=== PATIENT | female | born 1970 | race Caucasian/White ===

== ENCOUNTER → 2017-04-07 | Outpatient (REF) | payer OTHER ==
[2017-04-07 14:23] LABS: CONTROL LINE MONO INT CTR LINE PRESENT
== END ==
LOC: M LAB REF 13:49
PROVIDERS: ATTEND Nurse Practitioner Family
DX: J06.9 Acute upper respiratory infection, unspecified (principal)

== ENCOUNTER → 2017-04-20 | Outpatient (REF) | payer OTHER ==
[2017-04-23 00:06] LABS: Lyme Disease IgG/IgM Antibodie <0.91 ISR (0.00-0.90); Lyme Disease IgM Ab Quantitati <0.80 index (0.00-0.79)
== END ==
LOC: M LAB REF 15:23
PROVIDERS: ATTEND Nurse Practitioner Adult Health
DX: R53.83 Other fatigue (principal)

== ENCOUNTER → 2018-07-23 | Outpatient (CLI) | payer BC, OTHER | LOC: M WUC 15:09 | DX: R10.32 Left lower quadrant pain (principal) | CPT/HCPCS: 71046 ==

== ENCOUNTER 2019-06-19 20:34 | Emergency (ER) | payer BC, OTHER ==
[~2019-06-19] VITALS: Ht 180.3 cm; Wt 67.7 kg
[2019-06-19] MEDS ORDERED: TOVI8TAB PO (20:49)
[2019-06-19] MEDS ORDERED: HM V5000 PO (20:49)
[2019-06-19] MEDS ORDERED: LEVOTAB19 PO (20:49)
[2019-06-19] MEDS ORDERED: LORA-436 PO (20:49)
[2019-06-19] MEDS ORDERED: ULTR5TAB PO (20:52)
[2019-06-19] MEDS ORDERED: VALA500T5 PO (20:52)
[2019-06-19] MEDS ORDERED: OMEP40CA97 PO (20:52)
[2019-06-19] MEDS ORDERED: [UNRECOGNIZED DRUG - OTHER] PO (20:52)
[2019-06-19] MEDS ORDERED: LOPE2CAP PO (20:52)
--- NOTE | 2019-06-19 21:53 | REPVR ---
PROCEDURE INFORMATION: Exam: CT Head Without Contrast Exam date and time: 06/19/2019 9:42 PM Clinical history: 48 years old, female; Pain; Headache not specified TECHNIQUE: Imaging protocol: Computed tomography of the head without contrast. Radiation optimization: All CT scans at this facility use at least one of these dose optimization techniques: automated exposure control; mA and/or kV adjustment per patient size (includes targeted exams where dose is matched to clinical indication); or iterative reconstruction. COMPARISON: No relevant prior studies available. FINDINGS: Brain: Normal. No hemorrhage. Unremarkable white matter. No mass effect. Ventricles: Normal. No ventriculomegaly. Bones/joints: Unremarkable. No acute fracture. Sinuses: Visualized sinuses are unremarkable. No fluid levels. Mastoid air cells: Visualized mastoid air cells are well aerated. Soft tissues: Unremarkable. IMPRESSION: No acute intracranial abnormality. Electronically signed by: Waqar Sierra On 06/19/2019 21:53:30 PM
[2019-06-19] MEDS ORDERED: INDOMETHACIN 25 MG CAP PO ONE (22:30)
[2019-06-19] MEDS ORDERED: NS 1,000 ML IV ONE (22:30)
[2019-06-19] MEDS ORDERED: hydrALAZINE INJ 20 MG/ML VIAL IV ONE (22:30)
[2019-06-19 22:44] VITALS: BP 195/110
[2019-06-19 23:07] LABS: BASO % 0.3 % (0.0-1.0); EOS % 0.5 % (0.0-3.0); HEMATOCRIT 42.4 % (36.0-47.0); HEMOGLOBIN 14.4 g/dl (12.0-15.5); LYMPH # 2.4 10^3/uL (1.5-5.0); LYMPH % 31.7 % (24.0-44.0); MEAN CORPUSCULAR HEMOGLOBIN 35.5 pg (27.0-33.0); MEAN CORPUSCULAR VOLUME 104.4 fl (80.0-96.0); MONO # 0.6 10^3/uL (0.0-0.8); MONO % 8.5 % (0.0-5.0); NEUTROPHILS # 4.4 10^3/uL (1.5-8.5); NEUTROPHILS % 58.7 % (36.0-66.0); PLATELET COUNT, AUTOMATED 242 10^3/uL (150-450); RED BLOOD COUNT 4.06 10^6/uL (4.00-5.40); WHITE BLOOD COUNT 7.5 10^3/uL (4.0-10.0)
[2019-06-19 23:15] LABS: BLOOD UREA NITROGEN 14 MG/DL (7-18); C REACTIVE PROTEIN QUANTITATIV 0.45 MG/DL (0.00-0.30); CALCIUM LEVEL 8.8 MG/DL (8.5-10.1); CARBON DIOXIDE LEVEL 28 MEQ/L (21-32); CHLORIDE LEVEL 109 MEQ/L (98-107); CREATININE FOR GFR 0.81 MG/DL (0.55-1.30); GLOMERULAR FILTRATION RATE > 60.0 (>58); GLUCOSE, FASTING 87 MG/DL (70-100); POTASSIUM SERUM 3.6 MEQ/L (3.5-5.1); SODIUM LEVEL 142 MEQ/L (136-145)
[2019-06-19] MEDS ORDERED: carBAMazepine 200 MG TAB PO ONE (23:15)
[2019-06-19 23:30] VITALS: BP 177/107
[2019-06-19 23:30] LABS: ERYTHROCYTE SEDIMENTATION RATE 8 mm/hr (0-20)
[2019-06-19] MEDS ORDERED: CARB20TA PO (23:43)
== END 2019-06-20 00:05 | disposition home or self-care (01) ==
LOC: M ED 20:34
DX: G50.0 Trigeminal neuralgia (principal); H54.8 Legal blindness, as defined in USA; Z79.899 Other long term (current) drug therapy; Z79.3 Long term (current) use of hormonal contraceptives; Z88.1 Allergy status to other antibiotic agents

== ENCOUNTER 2019-06-25 11:29 | Emergency (ER) | payer BC, OTHER ==
[~2019-06-25] VITALS: Ht 180.3 cm; Wt 69.1 kg
[~2019-06-25 11:29] MED LIST: CARB20TA PO; HM V5000 PO; LEVOTAB19 PO; LOPE2CAP PO; LORA-436 PO; OMEP40CA97 PO; TOVI8TAB PO; ULTR5TAB PO; VALA500T5 PO; [UNRECOGNIZED DRUG - OTHER] PO
[2019-06-25 12:21] LABS: BASO % 0.3 % (0.0-1.0); EOS # 0.1 10^3/uL (0.0-0.5); EOS % 0.5 % (0.0-3.0); HEMATOCRIT 40.9 % (36.0-47.0); HEMOGLOBIN 13.8 g/dl (12.0-15.5); LYMPH # 1.6 10^3/uL (1.5-5.0); LYMPH % 17.4 % (24.0-44.0); MEAN CORPUSCULAR HEMOGLOBIN 34.7 pg (27.0-33.0); MEAN CORPUSCULAR HGB CONC 33.7 g/dl (32.0-36.5); MEAN CORPUSCULAR VOLUME 102.8 fl (80.0-96.0); MONO # 0.6 10^3/uL (0.0-0.8); MONO % 6.7 % (0.0-5.0); NEUTROPHILS % 74.9 % (36.0-66.0); PLATELET COUNT, AUTOMATED 248 10^3/uL (150-450); RED BLOOD COUNT 3.98 10^6/uL (4.00-5.40); WHITE BLOOD COUNT 9.4 10^3/uL (4.0-10.0)
[2019-06-25] MEDS ORDERED: KETOROLAC 30 MG/ML VIAL (J1885) IV ONE (12:30)
[2019-06-25] MEDS ORDERED: ONDANSETRON 4MG/2ML VIAL (J2405) IV ONE (12:30)
[2019-06-25] MEDS ORDERED: NS 1,000 ML IV ONE (12:30)
[2019-06-25 12:39] LABS: ALBUMIN 3.5 GM/DL (3.2-5.2); ALT/SGPT 29 U/L (12-78); BILIRUBIN,TOTAL 0.8 MG/DL (0.2-1.0); BLOOD UREA NITROGEN 13 MG/DL (7-18); CALCIUM LEVEL 8.2 MG/DL (8.5-10.1); CARBON DIOXIDE LEVEL 24 MEQ/L (21-32); CHLORIDE LEVEL 108 MEQ/L (98-107); CREATININE FOR GFR 0.68 MG/DL (0.55-1.30); GLOMERULAR FILTRATION RATE > 60.0 (>58); GLUCOSE, FASTING 79 MG/DL (70-100); LIPASE 188 U/L (73-393); SODIUM LEVEL 139 MEQ/L (136-145); TOTAL PROTEIN 6.7 GM/DL (6.4-8.2)
[2019-06-25] MEDS: GASTROGRAFIN SOLUTION 30ML PO SCH ×2 (12:57→13:28)
[2019-06-25] MEDS ORDERED: METOCLOPRAMIDE INJ 10MG/2ML VIAL (J2765) IV ONE (13:45)
[2019-06-25] MEDS ORDERED: ISOVUE-370 76% 100ML VIAL (Q9967) As Ordered ONE (14:09)
[2019-06-25] MEDS ORDERED: FLAG500T PO (14:44)
[2019-06-25] MEDS ORDERED: AUGM875T28 PO (14:44)
--- NOTE | 2019-06-25 14:45 | REP ---
Clinical: Diffuse abdominal pain with history of inflammatory bowel syndrome. Technique: Axial contrast enhanced images from the lung bases to the pubic symphysis using oral (per protocol) and 100 ml Isovue 370 intravenous contrast material with coronal and sagittal re-formations. Findings: Mucosal thickening and mild pericolonic stranding primarily involving the transverse and descending colon as well as few loops of small bowel in the left mid/upper abdomen along with small amount of ascites is most suggestive of colitis. No evidence for bowel obstruction or free air to suggest obvious perforation. Right lower quadrant demonstrates associated mildly prominent adenopathy at the ileocecal level. The appendix is not definitively identified. Liver, spleen, pancreas, gallbladder, and bilateral adrenal glands are normal. Kidneys demonstrate nephrocalcinosis and bilateral simple cysts. Pelvis demonstrates partially collapsed normal bladder and age-appropriate uterus/adnexa. Abdominal aorta without aneurysm or dissection. Musculoskeletal structures are intact. Lung bases are clear. Impression: 1. Findings most compatible with infectious/inflammatory enterocolitis. Sigmoid diverticulosis noted without definite diverticulitis. Mildly prominent lymph nodes in the right lower quadrant/pericecal region are also identified. The appendix is not definitively visualized. 2. Chronic nephrocalcinosis/medullary sponge kidney suggested. Electronically Signed by Giuliano Leos MD 06/25/2019 02:36 P
[2019-06-25] MEDS ORDERED: DICY10CA13 PO (14:46)
[2019-06-25] MEDS ORDERED: ZOFR4TAB16 PO (14:46)
[2019-06-25] MEDS ORDERED: REGL10TA6 PO (14:46)
[2019-06-25 14:57] VITALS: BP 159/94
[2019-06-25] MEDS ORDERED: metroNIDAZOLE (FLAGYL) 500 MG TAB PO ONE (15:00)
[2019-06-25] MEDS ORDERED: AUGMENTIN 875 MG TAB PO ONE (15:00)
== END 2019-06-25 15:15 | disposition home or self-care (01) ==
LOC: M ED 11:29
DX: K57.32 Diverticulitis of large intestine without perforation or abscess without bleeding (principal); I10 Essential (primary) hypertension; Q61.5 Medullary cystic kidney; K58.9 Irritable bowel syndrome, unspecified; Z88.1 Allergy status to other antibiotic agents; Z79.899 Other long term (current) drug therapy; Z79.3 Long term (current) use of hormonal contraceptives
CPT/HCPCS: 74177; 80053; 81001; 83690; 84702; 85025; 96361; 96374; 96375; 99284; J1885; J2405; J2765; Q9963; Q9967

== ENCOUNTER 2019-09-11 11:07 | Day surgery (SDC) | payer BC, OTHER ==
[~2019-09-11] VITALS: Ht 177.8 cm; Wt 64.4 kg
[~2019-09-11 11:07] MED LIST changes: +AUGM875T28 PO; +DICY10CA13 PO; +FLAG500T PO; +LISI-538 PO; +NS 1,000 ML IV ONE; +REGL10TA6 PO; +ZOFR4TAB16 PO
[2019-09-11] MEDS ORDERED: LIDOCAINE 2% INJ 100 MG/5 ML SDV (FOR ANES.) As Ordered ONE (12:03)
[2019-09-11] MEDS ORDERED: propofoL 200 MG/20 ML VIAL As Ordered ONE ×2 (12:03→12:31)
--- NOTE | 2019-09-11 12:22 | ROOR ---
Patient Name: Heena Kapadia Procedure Date: 09/11/2019 11:59 AM Date of : 1970 Age: 48 Room: [facility] Gender: Female Note Status: Finalized Procedure: Total Colonoscopy to Cecum + Biopsy Polypectomy Indications: High risk colon cancer surveillance: Personal history of colonic polyps, Last colonoscopy: 2012 Providers: Fer Vincent MD Referring MD: WILFREDO MARTINEZ JR, MD Requesting Provider: Medicines: Monitored Anesthesia Care Complications: No immediate complications. Procedure: Pre-Anesthesia Assessment: - The heart rate, respiratory rate, oxygen saturations, blood pressure, adequacy of pulmonary ventilation, and response to care were monitored throughout the procedure. The Colonoscope was introduced through the anus and advanced to the cecum, identified by appendiceal orifice and ileocecal valve. The colonoscopy was performed without difficulty. The patient tolerated the procedure well. The quality of the bowel preparation was excellent. Findings: The perianal and digital rectal examinations were normal. Non-bleeding internal hemorrhoids were found during retroflexion. The hemorrhoids were small and Grade I (internal hemorrhoids that do not prolapse). Multiple small and large-mouthed diverticula were found in the recto-sigmoid colon, sigmoid colon and descending colon. A small polyp was found at 35 cm proximal to the anus. The polyp was sessile. The polyp was removed with a jumbo cold forceps. Resection and retrieval were complete. The exam was otherwise without abnormality on direct and retroflexion views. Impression: - Non-bleeding internal hemorrhoids. - Diverticulosis in the recto-sigmoid colon, in the sigmoid colon and in the descending colon. - One small polyp at 35 cm proximal to the anus, removed with a jumbo cold forceps. Resected and retrieved. - The examination was otherwise normal on direct and retroflexion views. - The exam was otherwise normal to the cecum. Recommendation: - Patient has a contact number available for emergencies. The signs and symptoms of potential delayed complications were discussed with the patient. Return to normal activities tomorrow. Written discharge instructions were provided to the patient. - High fiber diet. - Discharge patient to home. - Continue present medications. - Await pathology results. - Telephone GI clinic for pathology results in 1 week. - Repeat colonoscopy in 5 years for surveillance. - Return to referring physician. - The findings and recommendations were discussed with the patient's family. Fer Vincent MD Fer Vincent MD 09/11/2019 12:22:22 PM Electronically signed by Fer Vincent MD Number of Addenda: 0 Note Initiated On: 09/11/2019 11:59 AM Estimated Blood Loss: Estimated blood loss: none.
[2019-09-11 12:40] VITALS: BP 116/69
== END 2019-09-11 12:52 | disposition home or self-care (01) ==
LOC: M OPP 11:07
PROVIDERS: ATTEND Internal Medicine Gastroenterology
DX: Z12.11 Encounter for screening for malignant neoplasm of colon (principal); Z86.010 Personal history of colon polyps; K64.0 First degree hemorrhoids; D12.6 Benign neoplasm of colon, unspecified; K57.30 Diverticulosis of large intestine without perforation or abscess without bleeding; Z79.899 Other long term (current) drug therapy; Z88.1 Allergy status to other antibiotic agents

== ENCOUNTER 2020-06-16 04:35 | Observation (INO) | payer BC, OTHER ==
[~2020-06-16] VITALS: Ht 180.3 cm; Wt 68.0 kg
[~2020-06-16 04:35] MED LIST changes: -NS 1,000 ML IV ONE
[2020-06-16] MEDS ORDERED: C1 ESTERASE INHIBITOR IV ONE (05:00)
[2020-06-16] MEDS ORDERED: NS 1,000 ML IV ONE ×2 (05:00→07:15)
[2020-06-16 05:03] LABS: BASO % 0.2 % (0.0-1.0); EOS # 0.1 10^3/uL (0.0-0.5); EOS % 1.1 % (0.0-3.0); HEMATOCRIT 37.7 % (36.0-47.0); HEMOGLOBIN 12.4 g/dl (12.0-15.5); LYMPH # 2.2 10^3/uL (1.5-5.0); LYMPH % 22.8 % (24.0-44.0); MEAN CORPUSCULAR HEMOGLOBIN 34.3 pg (27.0-33.0); MEAN CORPUSCULAR HGB CONC 32.9 g/dl (32.0-36.5); MEAN CORPUSCULAR VOLUME 104.4 fl (80.0-96.0); MONO # 0.8 10^3/uL (0.0-0.8); MONO % 8.1 % (0.0-5.0); NEUTROPHILS # 6.6 10^3/uL (1.5-8.5); NEUTROPHILS % 67.5 % (36.0-66.0); PLATELET COUNT, AUTOMATED 247 10^3/uL (150-450); RED BLOOD COUNT 3.61 10^6/uL (4.00-5.40); WHITE BLOOD COUNT 9.8 10^3/uL (4.0-10.0)
[2020-06-16 05:23] LABS: ERYTHROCYTE SEDIMENTATION RATE 6 mm/hr (0-20)
[2020-06-16 05:30] LABS: ALBUMIN 3.1 GM/DL (3.2-5.2); ALT/SGPT 31 U/L (12-78); BILIRUBIN,DIRECT 0.2 MG/DL (0.0-0.2); BILIRUBIN,TOTAL 1.1 MG/DL (0.2-1.0); BLOOD UREA NITROGEN 15 MG/DL (7-18); C REACTIVE PROTEIN QUANTITATIV 0.45 MG/DL (0.00-0.30); CALCIUM LEVEL 8.1 MG/DL (8.5-10.1); CARBON DIOXIDE LEVEL 26 MEQ/L (21-32); CHLORIDE LEVEL 109 MEQ/L (98-107); CREATININE FOR GFR 0.78 MG/DL (0.55-1.30); GLOMERULAR FILTRATION RATE > 60.0 (>58); GLUCOSE, FASTING 105 MG/DL (70-100); POTASSIUM SERUM 3.7 MEQ/L (3.5-5.1); SODIUM LEVEL 141 MEQ/L (136-145); TOTAL PROTEIN 6.3 GM/DL (6.4-8.2)
[2020-06-16] MEDS ORDERED: CETI-24 PO (08:51)
[2020-06-16] MEDS ORDERED: IBUP200C28 PO (08:51)
[2020-06-16] MEDS ORDERED: SETL1TAB PO (08:51)
[2020-06-16] MEDS ORDERED: LOPE-39 PO (08:51)
[2020-06-16] MEDS ORDERED: BIOT50005 SL (08:51)
--- NOTE | 2020-06-16 08:55 | REPVR ---
PROCEDURE INFORMATION: Exam: XR Chest, 1 View Exam date and time: 06/16/2020 8:35 AM Age: 49 years old Clinical indication: Other: Angioedema; Patient HX: Possible allergic reaction. TECHNIQUE: Imaging protocol: XR of the chest Views: Frontal portable sitting upright view of the chest. COMPARISON: CR CHEST 2 VIEW 08/27/2018 10:30 AM FINDINGS: Lungs: The lungs are clear bilaterally. The pulmonary vasculature is normal. Pleural space: No pleural effusion. No pneumothorax. Heart/Mediastinum: The heart is normal in size and contour. Mediastinum: Stable. Vasculature: Mild aortic arch atherosclerotic calcification without ectasia. Bones/joints: Stable. IMPRESSION: No acute cardiopulmonary abnormality identified. Electronically signed by: Robin Umaña On 06/16/2020 08:55:35 AM
[2020-06-16 09:45] VITALS: BP 134/67
[2020-06-16] MEDS: ENOXAPARIN 40MG/0.4ML SYRINGE (J1650 PER 10MG) SC SCH (10:48)
[2020-06-16] MEDS: NS 1,000 ML IV SCH ×2 (10:48→17:33)
[2020-06-16] MEDS: PANTOPRAZOLE 40MG VIAL (C9113 PER 1) IV SCH (10:49)
[2020-06-16 12:00] VITALS: BP 127/72
--- NOTE | 2020-06-16 13:20 | HPEPDOC ---
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 According to the patient she had woke up at 3 AM this morning feeling as though she was "choking" and increased right tongue swelling. She felt as though she will was dehydrated as she had drank wine the night before. She had symptoms of nausea with 4 episodes of nonbloody vomitus along with a headache and lightheadedness. She took 3 anti-inflammatory pills for the tongue swelling but this did not help. Vacations she had taken 94 include SRINATH inhibitor which she has been on for the past several years and melatonin, both the pill and chewable form. She felt as though the tongue swelling and "choking" feeling worsened over course of 15 minutes. She also noticed increased bilateral neck swelling which concerned her. She felt as so she had a panic attack during this time she had anterior chest pressure associated with her choking feeling. She called 911 and was later brought to the emergency room. In route the patient received decadron and Benadryl. In the emergency room the patient's still had significant right tongue swelling and felt as though her change of voice had not much improved from earlier. She was unable to move her tongue well and she was given a C1 esterase inhibitor. She was monitored for 3 hours but these tongue swelling persisted. Dr. Burnett with ENT saw patient in the ER and did fiberoptic scope. Dr. Thomas with pulm/ICU was consulted as well. Decision was made to admit to monitor closely in the ICU. At time of admission, ROS below.Patient was admitted for SRINATH inhibitor angioedema. REVIEW OF SYSTEMS: CONSTITUTIONAL: Denies lack of energy, unexplained weight gain or weight loss, fever, night sweats EYES: Denies eye drainage, eye pain, visual changes, dry/irritated eye EARS, NOSE, MOUTH, THROAT: Denies difficulty hearing, ringing in ears, mouth sores, loose teeth, sore throat, facial numbness or pain CARDIOVASCULAR: Denies irregular heartbeat, racing heart, swelling of feet or legs, pain in legs with walking RESPIRATORY: Denies night sweats, wheezing, sputum production, oxygen at home, coughing up blood, cough lasting > 1 month GASTROINTESTINAL: Denies abdominal pain, constipation, bloody stool, diarrhea, heartburn GENITOURINARY: Denies painful urination, bloody urine, frequent urination, urgency, leaking urine, impotence MUSCULOSKELETAL: Denies joint pain, muscle pain, leg swelling INTEGUMENTARY: Denies rash, itching, new skin lesion, change in existing skin lesion, hair loss or increase, breast changes. NEUROLOGICAL: Denies difficulty walking, numbness or tingling PSYCHIATRIC: Denies depression, anxiety, recurrent bad thoughts, mood swings, hallucinations PAST MEDICAL HISTORY: 1. History of herpes of the right eye, chronic 2. Hypertension 3. History of anxiety with panic attacks 4. Cataracts 5. GERD 6. Blindness of eye PAST SURGICAL HISTORY: 1. Cataract surgery 2. tonsillectomy FAMILY HISTORY: Father: prostate CA, DM. at 57 y/o Mother: alive, healthy SOCIAL HISTORY: Prior smoker less than 1 pack per day for 20 years, quit 16 years ago. Denies any pain or smokeless tobacco use. Drinks 34 glasses of wine a night. Denies illicit drug use. Lives locally with her family. Her primary care doctor is Dr. Fermin ALLERGIES: Please see below. HOME MEDICATIONS: Please see below. PHYSICAL EXAMINATION: CONSTITUTIONAL: No acute distress, resting comfortably, AAO x 3 EYES: PERRLA, EOM intact HENT, MOUTH: right tongue swelling, moist mucous membranes NECK: SUPPLE, no JVD, cervical lymphadenopathy bilaterally, nontender, no carotid bruit CV: Regular rate and rhythm, S1S2 normal, no murmurs/rubs/gallops RESPIRATORY: Clear to auscultation bilaterally, no rales/rhonchi/wheezes GI: BS positive in 4 quadrants, soft, nontender, nondistended, no rebound or guarding, no organomegaly : Deferred MUSCULOSKELETAL: Normal ROM. No cyanosis, clubbing, swelling, joint deformity, extremity edema INTEGUMENTARY: Intact, no rashes, no lesions, no erythema NEUROLOGIC: Cranial Nerves II-XII are intact, no focal deficits PSYCHIATRIC: Mood and affect are normal LABORATORY DATA: Please see below IMAGING: CXR: No acute cardiopulmonary abnormality identified. ASSESSMENT: 49-year-old female with past medical history of hypertension, panic attacks, anxiety, GERD who was admitted under observation status for SRINATH inhibitor angioedema. PLAN: ACEi angioedema -S/p decadron, benadryl and C1 esterase inhibitor. -Currently saturating well on RA with swelling of right tongue slightly more improved -Monitor closely with continuous pulse ox, humidified air, elevate HOB. -Labs pending -NPO, advance diet as tolerated -ICU for close monitoring, if worsens, consider FFP -Both pulmonary and ENT consulted to follow. HTN. -Stable. -Hold ACEi Hx of herpes of eye, chronic -C/w valtrex Hx of anxiety, panic attack. -Stable GERD -PPI DVT px -Enoxaparin DISPOSITION: Admitted under observation status to ICU for aforementioned issue. Plan is discharge home when medically improved. Vital Signs Vital Signs Date Time Temp Pulse Resp B/P (MAP) Pulse Ox O2 Delivery O2 Flow Rate FiO2 06/16/20 12:00 99.3 71 18 127/72 (90) 98 Room Air Laboratory Data Labs 24H Laboratory Tests 2 06/16/20 04:43: Immature Granulocyte % (Auto) 0.3, Neutrophils (%) (Auto) 67.5H, Lymphocytes (%) (Auto) 22.8L, Monocytes (%) (Auto) 8.1H, Eosinophils (%) (Auto) 1.1, Basophils (%) (Auto) 0.2, Neutrophils # (Auto) 6.6, Lymphocytes # (Auto) 2.2, Monocytes # (Auto) 0.8, Eosinophils # (Auto) 0.1, Basophils # (Auto) 0.0, Nucleated Red Blood Cells % (auto) 0.0, Erythrocyte Sedimentation Rate 6, Anion Gap 6L, Glomerular Filtration Rate > 60.0, Calcium Level 8.1L, Total Bilirubin 1.1H, Direct Bilirubin 0.2, Aspartate Amino Transf (AST/SGOT) 21, Alanine Aminotr ansferase (ALT/SGPT) 31, Alkaline Phosphatase 34L, C-Reactive Protein, Quantitative 0.45H, Total Protein 6.3L, Albumin 3.1L, Albumin/Globulin Ratio 1.0L CBC/BMP Laboratory Tests 06/16/20 04:43 Home Medications Scheduled Biotin (Biotin) 5,000 Mcg Tab.subl, 5,000 MCG SL DAILY TAKES AT NOON Cetirizine HCl (Cetirizine HCl) 10 Mg Tablet, 10 MG PO DAILY TAKES AT NOON Cyanocobalamin (Vitamin B-12) (Vitamin B12) 5,000 Mcg Tab.rapdis, 5,000 MCG PO DAILY TAKES AT NOON Fesoterodine Fumarate (Toviaz) 8 Mg Tab.er.24h, 8 MG PO BID Levonorgestrel-Ethin Estradiol (Setlakin 0.15 mg-0.03 mg Tab) 1 Each Tbdspk.3mo, 1 TAB PO DAILY Lisinopril (Lisinopril) 20 Mg Tablet, 20 MG PO DAILY TAKES AT NOON Loperamide HCl (Imodium A-D) 2 Mg Capsule, 4 MG PO DAILY TAKES AT NOON Omeprazole (Omeprazole) 40 Mg Capsule.dr, 40 MG PO DAILY Valacyclovir HCl (Valacyclovir) 500 Mg Tablet, 500 MG PO DAILY TAKES AT NOON [stresstabs] , 1 TAB PO DAILY Scheduled PRN Ibuprofen (Ibuprofen) 200 Mg Capsule, 600 MG PO QID PRN for PAIN Allergies Coded Allergies: Lisinopril (Verified Allergy, Severe, angioedema , 06/16/20) levofloxacin (Verified Allergy, Intermediate, hives, 09/06/19) A-FIB/CHADSVASC A-FIB History Current/History of A-Fib/PAF?: No Current PO Anticoag Therapy: No Age/Risk Factor Scoring CHADSVASC: CHADSVASC Response (Comments) Value Age Risk Factor Age < 65 years old 0 Gender Risk Factor Female 1 Hx of CHF No 0 Hx of HTN Yes 1 Hx of Stroke/TIA/or VTE No 0 Hx of Diabetes No 0 Hx of Vascular Disease No 0 Total 2 Treatment Treatment ordered: Other Other anticoagulant ordered: enoxaparin Lorena Alan MD Jun 16, 2020 13:20
[2020-06-16 16:00] VITALS: BP 123/80
[2020-06-16 20:00] VITALS: BP 126/71
[2020-06-16] MEDS ORDERED: IBUPROFEN 600MG TAB PO ONE (21:15)
[2020-06-17] VITALS: BP 138/98
[2020-06-17 04:00] VITALS: BP 143/86
[2020-06-17] MEDS: NS 1,000 ML IV SCH (04:30)
[2020-06-17 04:52] LABS: HEMATOCRIT 34.1 % (36.0-47.0); HEMOGLOBIN 11.1 g/dl (12.0-15.5); MEAN CORPUSCULAR HGB CONC 32.6 g/dl (32.0-36.5); MEAN CORPUSCULAR VOLUME 107.6 fl (80.0-96.0); PLATELET COUNT, AUTOMATED 176 10^3/uL (150-450); RED BLOOD COUNT 3.17 10^6/uL (4.00-5.40); WHITE BLOOD COUNT 5.2 10^3/uL (4.0-10.0)
[2020-06-17 05:16] LABS: BLOOD UREA NITROGEN 8 MG/DL (7-18); CALCIUM LEVEL 7.5 MG/DL (8.5-10.1); CARBON DIOXIDE LEVEL 24 MEQ/L (21-32); CHLORIDE LEVEL 112 MEQ/L (98-107); CREATININE FOR GFR 0.59 MG/DL (0.55-1.30); GLOMERULAR FILTRATION RATE > 60.0 (>58); GLUCOSE, FASTING 96 MG/DL (70-100); POTASSIUM SERUM 3.6 MEQ/L (3.5-5.1); SODIUM LEVEL 143 MEQ/L (136-145)
[2020-06-17] MEDS ORDERED: AMLO1TAB24 PO (07:47)
[2020-06-17 08:00] VITALS: BP 148/91
[2020-06-17 08:26] VITALS: BP 148/91
[2020-06-17] MEDS: ENOXAPARIN 40MG/0.4ML SYRINGE (J1650 PER 10MG) SC SCH (08:26)
[2020-06-17] MEDS: PANTOPRAZOLE 40MG VIAL (C9113 PER 1) IV SCH (08:26)
[2020-06-17] MEDS ORDERED: amLODIPine 5 MG TAB PO SCH (09:00)
--- NOTE | 2020-06-17 13:39 | DS.PDOC ---
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 According to the patient she had woke up at 3 AM this morning feeling as though she was "choking" and increased right tongue swelling. She felt as though she will was dehydrated as she had drank wine the night before. She had symptoms of nausea with 4 episodes of nonbloody vomitus along with a headache and lightheadedness. She took 3 anti-inflammatory pills for the tongue swelling but this did not help. Vacations she had taken 94 include SRINATH inhibitor which she has been on for the past several years and melatonin, both the pill and chewable form. She felt as though the tongue swelling and "choking" feeling worsened over course of 15 minutes. She also noticed increased bilateral neck swelling which concerned her. She felt as so she had a panic attack during this time she had anterior chest pressure associated with her choking feeling. She called 911 and was later brought to the emergency room. In route the patient received decadron and Benadryl. In the emergency room the patient's still had significant right tongue swelling and felt as though her change of voice had not much improved from earlier. She was unable to move her tongue well and she was given a C1 esterase inhibitor. She was monitored for 3 hours but these tongue swelling persisted. Dr. Burnett with ENT saw patient in the ER and did fiberoptic scope. Dr. Thomas with pulm/ICU was consulted as well. Decision was made to admit to monitor closely in the ICU. At time of admission, ROS below.Patient was admitted for SRINATH inhibitor angioedema. HOSPITAL COURSE: She was kept off of SRINATH inhibitor during hospital stay. She tolerated an advanced diet well. Over the evening her pulse oximetry was stable and she remained on room air. the next morning the patient had no swelling and no difficulty breathing, difficulty swallowing or other issues. She was started on a low-dose amlodipine in place of lisinopril which she tolerated well. The patient was discharged home with follow-up with both ear nose and throat and primary care provider. At discharge the patient had no complaints. He was advis ed to update all providers that she was now allergic to lisinopril and to no longer take the medication at home due to risk of airway compromise. REVIEW OF SYSTEMS: CONSTITUTIONAL: Denies lack of energy, unexplained weight gain or weight loss, fever, night sweats EYES: Denies eye drainage, eye pain, visual changes, dry/irritated eye EARS, NOSE, MOUTH, THROAT: Denies difficulty hearing, ringing in ears, mouth sores, loose teeth, sore throat, facial numbness or pain CARDIOVASCULAR: Denies irregular heartbeat, racing heart, swelling of feet or legs, pain in legs with walking RESPIRATORY: Denies night sweats, wheezing, sputum production, oxygen at home, coughing up blood, cough lasting > 1 month GASTROINTESTINAL: Denies abdominal pain, constipation, bloody stool, diarrhea, heartburn GENITOURINARY: Denies painful urination, bloody urine, frequent urination, urgency, leaking urine, impotence MUSCULOSKELETAL: Denies joint pain, muscle pain, leg swelling INTEGUMENTARY: Denies rash, itching, new skin lesion, change in existing skin lesion, hair loss or increase, breast changes. NEUROLOGICAL: Denies difficulty walking, numbness or tingling PSYCHIATRIC: Denies depression, anxiety, recurrent bad thoughts, mood swings, hallucinations PAST MEDICAL HISTORY: 1. History of herpes of the right eye, chronic 2. Hypertension 3. History of anxiety with panic attacks 4. Cataracts 5. GERD 6. Blindness of eye PAST SURGICAL HISTORY: 1. Cataract surgery 2. tonsillectomy FAMILY HISTORY: Father: prostate CA, DM. at 57 y/o Mother: alive, healthy SOCIAL HISTORY: Prior smoker less than 1 pack per day for 20 years, quit 16 years ago. Denies any pain or smokeless tobacco use. Drinks 34 glasses of wine a night. Denies illicit drug use. Lives locally with her family. Her primary care doctor is Dr. Fermin ALLERGIES: Please see below. HOME MEDICATIONS: Please see below. PHYSICAL EXAMINATION: VS: Please see below CONSTITUTIONAL: No acute distress, resting comfortably, AAO x 3 EYES: PERRLA, EOM intact HENT, MOUTH: right tongue swelling, moist mucous membranes NECK: SUPPLE, no JVD, cervical lymphadenopathy bilaterally, nontender, no carotid bruit CV: Regular rate and rhythm, S1S2 normal, no murmurs/rubs/gallops RESPIRATORY: Clear to auscultation bilaterally, no rales/rhonchi/wheezes GI: BS positive in 4 quadrants, soft, nontender, nondistended, no rebound or gu arding, no organomegaly : Deferred MUSCULOSKELETAL: Normal ROM. No cyanosis, clubbing, swelling, joint deformity, extremity edema INTEGUMENTARY: Intact, no rashes, no lesions, no erythema NEUROLOGIC: Cranial Nerves II-XII are intact, no focal deficits PSYCHIATRIC: Mood and affect are normal LABORATORY DATA: Please see below IMAGING: CXR: No acute cardiopulmonary abnormality identified. ASSESSMENT: 49-year-old female with past medical history of hypertension, panic attacks, anxiety, GERD who was admitted under observation status for SRINATH inhibitor angioedema. PLAN: ACEi angioedema -Resolved right tongue swelling, shortness of breath. Denies dysphagia -S/p decadron, benadryl and C1 esterase inhibitor. -Currently saturating well on RA -Lisinopril taken off home med list, listed as allergy -She is advised to update PCP and f/u with ENT by end of week, Dr. Hortencia MORELAND. -Stable. -D/c ACEi -Started low dose amlodipine Hx of herpes of eye, chronic -C/w valtrex Hx of anxiety, panic attack. -Stable DISPOSITION: Discharged in improved condition, f/u with PCP and ENT this week. TIME SPENT ON DISCHARGE: Greater than 30 minutes. Vital Signs/I&Os Vital Signs Date Time Temp Pulse Resp B/P (MAP) Pulse Ox O2 Delivery O2 Flow Rate FiO2 06/17/20 08:26 75 148/91 06/17/20 08:00 98.3 16 99 Room Air I&O- Last 24 Hours up to 6 AM 06/17/20 06:00 Intake Total 2320 ml Output Total 0 ml Balance 2320 ml Laboratory Data Labs 24H Laboratory Tests 2 06/17/20 04:37: Nucleated Red Blood Cells % (auto) 0.0, Anion Gap 7L, Glomerular Filtration Rate > 60.0, Calcium Level 7.5L CBC/BMP Laboratory Tests 06/17/20 04:37 Discharge Medications Scheduled Amlodipine Besylate (Amlodipine Besylate) 5 Mg Tablet, 5 MG PO DAILY Biotin (Biotin) 5,000 Mcg Tab.subl, 5,000 MCG SL DAILY, (Reported) TAKES AT NOON Cetirizine HCl (Cetirizine HCl) 10 Mg Tablet, 10 MG PO DAILY, (Reported) TAKES AT NOON Cyanocobalamin (Vitamin B-12) (Vitamin B12) 5,000 Mcg Tab.rapdis, 5,000 MCG PO DAILY, (Reported) TAKES AT NOON Fesoterodine Fumarate (Toviaz) 8 Mg Tab.er.24h, 8 MG PO BID, (Reported) Levonorgestrel-Ethin Estradiol (Setlakin 0.15 mg-0.03 mg Tab) 1 Each Tbdspk.3mo, 1 TAB PO DAILY, (Reported) Loperamide HCl (Imodium A-D) 2 Mg Capsule, 4 MG PO DAILY, (Reported) TAKES AT NOON Omeprazole (Omeprazole) 40 Mg Capsule.dr, 40 MG PO DAILY, (Reported) Valacyclovir HCl (Valacyclovir) 500 Mg Tablet, 500 MG PO DAILY, (Reported) TAKES AT NOON [stresstabs] , 1 TAB PO DAILY, (Reported) Scheduled PRN Ibuprofen (Ibuprofen) 200 Mg Capsule, 600 MG PO QID PRN for PAIN, (Reported) Allergies Coded Allergies: lisinopril (Verified Allergy, Severe, angioedema , 06/16/20) levofloxacin (Verified Allergy, Intermediate, hives, 09/06/19) Lorena Alan MD Jun 17, 2020 13:39
[2020-06-19 15:07] LABS: C1 ESTERASE INHIB. FUNCTIONAL > 100 (.); COAGULATION FACTOR XII ACTIVIT 130 % (50-150); TRYPTASE 4.2 ug/L (2.2-13.2)
== END 2020-06-17 09:45 | disposition home or self-care (01) ==
LOC: M ED 04:35 → M ED INP 08:23 → M ICU 09:35
PROVIDERS: ADMIT Internal Medicine; ATTEND Internal Medicine
DX: T78.3XXA Angioneurotic edema, initial encounter (principal); T46.4X5A Adverse effect of angiotensin-converting-enzyme inhibitors, initial encounter; I10 Essential (primary) hypertension; K21.9 Gastro-esophageal reflux disease without esophagitis; Z79.899 Other long term (current) drug therapy; F41.0 Panic disorder [episodic paroxysmal anxiety]; Z88.1 Allergy status to other antibiotic agents; Z88.8 Allergy status to other drugs, medicaments and biological substances; Z87.891 Personal history of nicotine dependence
CPT/HCPCS: 36415; 71045; 80048; 80076; 83519; 85025; 85027; 85280; 85652; 86140; 86161; 86850; 86900; 86901; 93041; 94760; 96361; 96365; 99285; C9113; J0597; J1650

== ENCOUNTER 2023-06-12 10:22 | Day surgery (SDC) | payer BC, OTHER ==
[~2023-06-12] VITALS: Ht 180.3 cm; Wt 66.7 kg
[~2023-06-12 10:22] MED LIST changes: +AMLO1TAB24 PO; +B6/F1CAP PO; +BIOT50005 SL; +BISO5TAB14 PO; +CETI-24 PO; +CVS5000S2 PO; +DICY-61 PO; -DICY10CA13 PO; +FESO8TAB PO; +IBUP200C28 PO; +LIDOCAINE 2% 100MG/5ML SDV (FOR ANES.) As Ordered ONE; -LISI-538 PO; +LISI20TA33 PO; +LOPE-39 PO; -LORA-436 PO; +LORA-930 PO; +NS 1,000 ML IV ONE; +OMEP40CA4 PO; -OMEP40CA97 PO; +SETL1TAB PO; +SIMETHICONE 40MG/0.6ML DROPS 30ML As Ordered ONE; +THERTAB52 PO; +VITA500C24 PO; +propofoL 200 MG/20 ML VIAL As Ordered ONE
[2023-06-12] MEDS ORDERED: fentaNYL 100 MCG/2 ML INJECTION As Ordered ONE (12:03)
[2023-06-12] MEDS ORDERED: propofoL 200 MG/20 ML VIAL As Ordered ONE (12:21)
[2023-06-12 12:29] VITALS: TEMP 97.7
[2023-06-12 12:47] VITALS: BP 129/85; O2SAT 99
== END 2023-06-12 12:53 | disposition home or self-care (01) ==
LOC: M OPP 10:22
PROVIDERS: ATTEND Internal Medicine Gastroenterology
DX: Z12.11 Encounter for screening for malignant neoplasm of colon (principal); Z86.010 Personal history of colon polyps; K64.0 First degree hemorrhoids; K44.9 Diaphragmatic hernia without obstruction or gangrene; K29.50 Unspecified chronic gastritis without bleeding; K22.70 Barrett's esophagus without dysplasia; Z79.1 Long term (current) use of non-steroidal anti-inflammatories (NSAID); Z79.2 Long term (current) use of antibiotics; Z79.3 Long term (current) use of hormonal contraceptives; Z79.899 Other long term (current) drug therapy; Z88.1 Allergy status to other antibiotic agents; Z88.8 Allergy status to other drugs, medicaments and biological substances; Z91.89 Other specified personal risk factors, not elsewhere classified
CPT/HCPCS: 43239; 45378; 88305; J3010

== ENCOUNTER → 2023-08-04 | Outpatient (REF) | payer BC, OTHER ==
[~2023-08-04] MED LIST changes: -LIDOCAINE 2% 100MG/5ML SDV (FOR ANES.) As Ordered ONE; -NS 1,000 ML IV ONE; -SIMETHICONE 40MG/0.6ML DROPS 30ML As Ordered ONE; -propofoL 200 MG/20 ML VIAL As Ordered ONE
== END ==
LOC: M LAB REF 16:34
PROVIDERS: ATTEND Student in an Organized Health Care Education/Training Program
DX: R10.32 Left lower quadrant pain (principal)

== ENCOUNTER → 2023-08-14 | Outpatient (REF) | payer BC, OTHER | LOC: M LAB REF 16:22 | PROVIDERS: ATTEND Internal Medicine | DX: N39.0 Urinary tract infection, site not specified (principal); R10.32 Left lower quadrant pain ==

== ENCOUNTER → 2023-08-30 | Outpatient (REF) | payer OTHER ==
[2023-08-30 19:37] LABS: PERCENT SATURATION 49.7 % (13.2-45.0)
[2023-08-30 19:40] LABS: FERRITIN 530.9 NG/ML (7.3-270.7)
== END ==
LOC: M LAB REF 16:57
PROVIDERS: ATTEND Internal Medicine
DX: D50.9 Iron deficiency anemia, unspecified (principal)

== ENCOUNTER → 2024-05-28 | Outpatient (CLI) | payer BC | LOC: M WHC 13:25 | PROVIDERS: ATTEND Internal Medicine | DX: C50.312 Malignant neoplasm of lower-inner quadrant of left female breast (principal); Z79.811 Long term (current) use of aromatase inhibitors; M85.89 Other specified disorders of bone density and structure, multiple sites ==

== ENCOUNTER → 2024-06-19 | Outpatient (CLI) | payer BC | LOC: M WUC 14:25 | PROVIDERS: ATTEND Nurse Practitioner Adult Health | DX: M54.2 Cervicalgia (principal) ==

== ENCOUNTER → 2024-09-25 | Outpatient (CLI) | payer BC ==
[~2024-09-25] MED LIST changes: +MELO15TA28 PO
== END ==
LOC: M ONCR 10:46
PROVIDERS: ATTEND General Practice
DX: C50.312 Malignant neoplasm of lower-inner quadrant of left female breast (principal); Z17.411 Hormone receptor positive with human epidermal growth factor receptor 2 negative status; M25.50 Pain in unspecified joint; Z98.890 Other specified postprocedural states; Z92.21 Personal history of antineoplastic chemotherapy; Z80.42 Family history of malignant neoplasm of prostate; Z87.891 Personal history of nicotine dependence; Z88.1 Allergy status to other antibiotic agents; Z88.8 Allergy status to other drugs, medicaments and biological substances; Z79.899 Other long term (current) drug therapy

== ENCOUNTER → 2024-10-25 | Outpatient (RCR) | payer BC | LOC: M ONCR 10-03 11:00 | PROVIDERS: ATTEND General Practice | DX: Z51.0 Encounter for antineoplastic radiation therapy (principal); C50.312 Malignant neoplasm of lower-inner quadrant of left female breast ==

== ENCOUNTER 2024-11-15 14:29 | Outpatient (RCR) | payer BC | END 2024-11-25 | LOC: M ONCR 14:29 | PROVIDERS: ATTEND General Practice | DX: Z51.0 Encounter for antineoplastic radiation therapy (principal); C50.312 Malignant neoplasm of lower-inner quadrant of left female breast ==

== ENCOUNTER → 2024-11-28 | Outpatient (CLI) | payer BC ==
[~2024-11-28] MED LIST changes: +CURC500C PO; +L-CA1CAP PO; +LORA-243 PO; +OXYC-517 PO; +PANT40TA29 PO; +RED500CA PO; +[UNRECOGNIZED DRUG - CODE] PO; +[UNRECOGNIZED DRUG - OTHER]; +collagen PO
== END ==
LOC: M ONCR 10:16
PROVIDERS: ATTEND General Practice
DX: L59.8 Other specified disorders of the skin and subcutaneous tissue related to radiation (principal); Z92.3 Personal history of irradiation

== ENCOUNTER → 2024-12-09 | Day surgery (SDC) | payer BC ==
[~2024-12-09] VITALS: Ht 180.3 cm; Wt 64.0 kg
[~2024-12-09] MED LIST changes: +propofoL 200 MG/20 ML VIAL As Ordered ONE
[2024-12-09 12:14] VITALS: TEMP 98.9
[2024-12-09 12:35] VITALS: BP 131/82; O2SAT 99
== END | disposition home or self-care (01) ==
LOC: M OPP 10:16
PROVIDERS: ATTEND Internal Medicine Gastroenterology
DX: K31.A19 Gastric intestinal metaplasia without dysplasia, unspecified site (principal); K22.70 Barrett's esophagus without dysplasia; K57.30 Diverticulosis of large intestine without perforation or abscess without bleeding; Z86.0100 Personal history of colon polyps, unspecified; K22.89 Other specified disease of esophagus; K44.9 Diaphragmatic hernia without obstruction or gangrene; K31.89 Other diseases of stomach and duodenum; I10 Essential (primary) hypertension; K21.9 Gastro-esophageal reflux disease without esophagitis; Z85.3 Personal history of malignant neoplasm of breast; Z92.21 Personal history of antineoplastic chemotherapy; Z92.3 Personal history of irradiation; Z88.8 Allergy status to other drugs, medicaments and biological substances; Z79.899 Other long term (current) drug therapy

== ENCOUNTER → 2025-05-23 | Outpatient (CLI) | payer BC ==
[~2025-05-23] MED LIST changes: -propofoL 200 MG/20 ML VIAL As Ordered ONE
== END ==
LOC: M ONCR 13:57
PROVIDERS: ATTEND Specialist
DX: Z08 Encounter for follow-up examination after completed treatment for malignant neoplasm (principal); Z85.3 Personal history of malignant neoplasm of breast; Z92.21 Personal history of antineoplastic chemotherapy; Z92.3 Personal history of irradiation; Z88.1 Allergy status to other antibiotic agents; Z88.8 Allergy status to other drugs, medicaments and biological substances; Z79.899 Other long term (current) drug therapy